=== PATIENT | female | born 1975 | race African-American/Black ===

== ENCOUNTER 2018-04-02 21:18 | Emergency (ER) | payer MEDICARE, MEDICAID ==
--- NOTE | 2018-04-02 21:38 | ED Physician Chart ---
ED Chief Complaint/HPI - Patient Information Date Seen:: 04/02/18 Time Seen:: 21:24 Chief Complaint:: rt ear pain History of Present Illness:: 42 yr old female with rt ear pain after q tip use cleaning the ear and felt a pop and bleedng ED Review of Systems - Review of Systems General/Constitutional: No fever, No chills Skin: No skin lesions Head: No headache Eyes: No loss of vision ENT: Earache, Other (bleeding from ear and heard a pop) Neck: No neck pain Cardio Vascular: No chest pain Pulmonary: No SOB GI: No nausea G/U: No dysuria Musculoskeletal: No bone or joint pain Endocrine: No polyuria Psychiatric: No depression Hematopoietic: No bruising Allergic/Immuno: No urticaria Neurological: No syncope ED Past Medical History - Past Medical History Past Medical History: Other (mental delay mild sister is guardian and she is with her) ED Physical Exam - Physical Examination Eyes: Lids, conjuctiva normal Skin: Nl inspection Other ENMT comments:: tm tear with fresh blood bleeding under control Neck: Nontender Cardio Vascular: No murmur, gallop, rubs GI: No tenderness/rebounding/guarding : No CVA tenderness Extremities: No tenderness or effusion Neuro/Psych: Alert/oriented ED Assessment - Assessment General Assessment: ear pain rupyures bleeding rt tm ED Septic Shock - . Is Septic Shock (SBP<90, OR Lactate>4 mmol\L) present?: No ED Reassessment (Disposition) - Patient Disposition Discharge/Transfer:: Acute Care w/in this hosp Condition at Disposition:: Stable
== END 2018-04-02 21:58 | disposition home or self-care (01) ==
LOC: ER 21:18
DX: S09.21XA Traumatic rupture of right ear drum, initial encounter (principal); X58.XXXA Exposure to other specified factors, initial encounter; Y93.89 Activity, other specified; Y92.89 Other specified places as the place of occurrence of the external cause; Y99.8 Other external cause status
CPT/HCPCS: Z7502; Z7610